=== PATIENT | female | born 1970 | race Caucasian/White ===

== ENCOUNTER → 2016-10-25 | Day surgery (SDC) | payer BC ==
[~2016-10-25] MED LIST: ACETAMINOPHEN/HYDROcodone 325 MG/5 MG TAB ONE; BUPIVACAINE/EPINEPHRINE 0.5% 50 ML VIAL ONE; KETOROLAC TROMETHAMINE 30 MG/ML (IVP) VIAL IV PUSH ONE; LACTATED RINGER'S 1000 ML INJ 1,000 ML ONE; MEPERIDINE HCL 25 MG/ML VIAL ONE; MIDAZOLAM HCL 2 MG/2 ML VIAL ONE; ONDANSETRON HCL 4 MG/2 ML VIAL IV PUSH ONE; PROPOFOL 200 MG/20 ML AMP IV ONE; VESI5TAB PO; ceFAZolin INJ 1,000 MG VIAL ONE
--- NOTE | 2016-10-25 15:50 | TN ---
cc: PATRICK YORK DATE OF SURGERY: 10/25/2016. PREOPERATIVE DIAGNOSIS: 1. Internal derangement of the right knee. 2. Probable medial meniscus tear right knee. POSTOPERATIVE DIAGNOSIS: 1. Tear of the medial meniscus. 2. Osteoarthritis right knee OPERATIVE PROCEDURE PERFORMED: 1. Arthroscopy of the right knee. 2. Arthroscopic medial meniscectomy. 3. Minor abrasion chondroplasty medial compartment. SURGEON: Pablo Reyes MD. ANESTHESIA: General. ESTIMATED BLOOD LOSS: Minimal. INDICATIONS FOR THE PROCEDURE: This patient is a 46-year-old female who had an MRI scan a couple of years ago showing evidence of a torn medial meniscus. She has been symptomatic on and off but recently had become very painful with catching, locking and swelling. She presents for arthroscopic surgery. DESCRIPTION OF THE PROCEDURE IN DETAIL: The patient was brought to the operating room and anesthetized in the supine position. The right leg was scrubbed with alcohol followed by Hibiclens followed Chloraprep and draped sterilely. Antibiotics were given within a one hour time window. A time-out was done. Inflow was established anterior and laterally. The knee was inflated. The suprapatellar pouch was unremarkable. The retropatellar surface showed grade 1 and minor grade 2 changes. No loose bodies were found in the medial or lateral gutters. The medial department showed a parrot beak type tear of the medial meniscus at the one o'clock position. There was some evidence as if there had been a small partial bucket handle tear which was clipped underneath now. The medial compartment showed one area of loose articular cartilage especially the weightbearing portion of the medial femoral condyle. The ACL was normal. The lateral compartment was totally normal. A spinal needle was introduced along medial joint line. A separate incision was made. Straight and angled punches were used take the meniscus back from approximately the three o'clock position of the posterior horn. The rest of the meniscus was stable. A minor abrasion chondroplasty was performed. The wound was irrigated copiously. The portals were anesthetized with 0.5% Marcaine with epinephrine. A sterile dressing was applied. The portals were closed with Steri-Strips and Benzoin. Sterile dressing applied. The patient was awakened and taken to recovery in satisfactory condition. Patrick MD CEE Duval/CHERRIE /3:26 PM /3:35 PM
== END | disposition home or self-care (01) ==
LOC: ESDC 13:33
PROVIDERS: ATTEND Orthopaedic Surgery Orthopaedic Surgery of the Spine
DX: S83.241A Other tear of medial meniscus, current injury, right knee, initial encounter (principal); M17.11 Unilateral primary osteoarthritis, right knee
CPT/HCPCS: 01400; 29881; J0690; J1885; J2175; J2250; J2405; J3010; J7120

== ENCOUNTER → 2016-12-25 | Day surgery (SDC) | payer BC ==
[~2016-12-25] MED LIST changes: -ACETAMINOPHEN/HYDROcodone 325 MG/5 MG TAB ONE; +BACITRACIN TOP OINT 15 GM TUBE ONE; +BUPIVACAINE/EPINEPHRINE 0.25% PF 10 ML VIAL ONE; -BUPIVACAINE/EPINEPHRINE 0.5% 50 ML VIAL ONE; +BUPIVACAINE/EPINEPHRINE 0.5% PF 10 ML VIAL ONE; -KETOROLAC TROMETHAMINE 30 MG/ML (IVP) VIAL IV PUSH ONE; -MEPERIDINE HCL 25 MG/ML VIAL ONE; +PROPOFOL 1000 MG/100 ML BTL IV ONE; -PROPOFOL 200 MG/20 ML AMP IV ONE; +ceFAZolin 2 GM PREMIX 50 ML ONE; -ceFAZolin INJ 1,000 MG VIAL ONE
--- NOTE | 2016-12-25 14:22 | TN ---
cc: PATRICK BETTENCOURT M.D. DATE OF SURGERY: 12/25/2016 PREOPERATIVE DIAGNOSIS Retracted left nipple status post excision major ducts, left breast. POSTOPERATIVE DIAGNOSIS Retracted left nipple status post excision major ducts, left breast. PROCEDURE PERFORMED Correction of left nipple inversion with mammoplasty rearrangement. SURGEON Patrick Bettencourt MD ANESTHESIA TIVA with local. COMPLICATIONS None. INDICATION FOR PROCEDURE Ms. Sepulveda is a very pleasant 46-year-old female who had a bloody nipple discharge on the left. She underwent excision of the major ducts on the left breast. Postoperatively she did well. During her annual follow-up visit she was noted to have significant retraction of her left nipple. She was seen and evaluated in the office and we discussed possible correction of the retraction. I explained to her that more than likely this was scar tissue that fibrosed down and inverted the nipple during the healing process. She was agreeable to having the nipple inversion corrected. Risks and benefits was discussed with her in detail and she was agreeable. DETAILS OF PROCEDURE The patient was identified, brought to the operating room and placed supine on the operating table. After adequate IV sedation was achieved the left breast was prepped and draped in standard surgical fashion. 0.25% Marcaine was injected in the skin and subcutaneous tissue around the patient's previous periareolar incision. Previous periareolar incision was then opened. Dissection proceeded into the breast tissue itself. Next, using meticulous sharp dissection the scar tissue directly underlying the nipple that was retracting was carefully dissected and the nipple was freed up completely. Once the nipple was freed up completely the wound was irrigated out with normal saline solution. All bleeding points were controlled with electrocautery Bovie. The breast tissue was then rearranged in order to buttress the empty space directly underlying the nipple. Electrocautery Bovie was used to free up the breast tissue both medially and laterally and then it was brought together with a 3-0 Vicryl suture. With this the defect of the nipple was closed and the nipple remained flat. Wound was then infiltrated with additional 0.25% Marcaine. The incision was then closed in two layers using a 3-0 and 4-0 Vicryl. A pursestring suture of 5-0 PDS was used to keep the nipple up, to keep it from coral back. Sterile dressings were then applied and the patient was awakened and brought to recovery in stable condition. Patrick MD GUNJAN Bettencourt /2:03 PM /2:13 PM
== END | disposition home or self-care (01) ==
LOC: ESDC 10:31
PROVIDERS: ATTEND Surgery Trauma Surgery
DX: N64.53 Retraction of nipple (principal)
CPT/HCPCS: 00402; 19355; 88305; J0690; J2250; J2405; J3010; J7120; 88307